=== PATIENT | male | born 1950 | race Caucasian/White ===

== ENCOUNTER → 2018-05-02 | Outpatient (CLI) | payer MEDICARE ==
[~2018-05-02] MED LIST: ASPI-515 PO; ATOR20TA9 PO; LEVE500T53 PO; METO25TA91 PO; POTA10TA5 PO; VILA40TA PO
[2018-05-02 10:49] LABS: MICROSCOPIC INDICATED
[2018-05-02 10:50] LABS: CULTURE INDICATED? NO
[2018-05-02 12:58] LABS: ALBUMIN 3.7 g/dL (3.4-5.0); ANION GAP 9 mmol/L (5-15); CALCIUM 8.9 mg/dL (8.5-10.1); CHLORIDE 107 mmol/L (98-107); CHOLESTEROL, TOTAL 134 mg/dL (140-239)
[2018-05-02 13:07] LABS: ALANINE AMINOTRANSFERASE 25 U/L (12-78); ALKALINE PHOSPHATASE 74 U/L (45-117); BILIRUBIN,TOTAL 0.4 mg/dL (0.2-1.0); C-REACTIVE PROTEIN, QUANT 0.22 mg/dL (0.02-0.49); CHOL/HDL RATIO 2.8; CREATINE KINASE, TOTAL 86 U/L (39-308); CREATININE 1.02 mg/dL (0.7-1.3); HDL CHOL % 36 % (26-37); HDL CHOLESTEROL (DIRECT) 48 mg/dL (40-60); LDL CHOLESTEROL,CALCULATED 68 mg/dL (54-169); LDL/HDL RATIO 1.4 (0.5-3.0); TOTAL PROTEIN 7.4 g/dL (6.4-8.2); TRIGLYCERIDES 92 mg/dL (50-200); VLDL CHOLESTEROL 18 mg/dL (0-25)
[2018-05-02 13:59] LABS: HEMOGLOBIN A1C 5.6 % (4.2-6.3)
== END | disposition home or self-care (01) ==
LOC: CFH 08:23
PROVIDERS: ATTEND Internal Medicine Cardiovascular Disease
DX: I25.83 Coronary atherosclerosis due to lipid rich plaque (principal); M12.9 Arthropathy, unspecified; I49.9 Cardiac arrhythmia, unspecified; J30.9 Allergic rhinitis, unspecified; K21.9 Gastro-esophageal reflux disease without esophagitis; N40.0 Benign prostatic hyperplasia without lower urinary tract symptoms; E78.5 Hyperlipidemia, unspecified; R94.5 Abnormal results of liver function studies; R79.9 Abnormal finding of blood chemistry, unspecified; R42 Dizziness and giddiness; R53.83 Other fatigue; M79.1 Myalgia; R07.89 Other chest pain; R55 Syncope and collapse; T50.8X4A Poisoning by diagnostic agents, undetermined, initial encounter; Z79.891 Long term (current) use of opiate analgesic
CPT/HCPCS: 36415; 80053; 80061; 81001; 82550; 83036; 84153; 84443; 86140; 86803

== ENCOUNTER → 2018-11-12 | Outpatient (CLI) | payer MEDICARE ==
[~2018-11-12] MED LIST changes: +ATOR20TA37 PO; -ATOR20TA9 PO; +REGADENOSON 0.4 MG/5 ML SYRINGE ONE
== END | disposition home or self-care (01) ==
LOC: CFH 08:30
PROVIDERS: ATTEND Internal Medicine Cardiovascular Disease
DX: I25.10 Atherosclerotic heart disease of native coronary artery without angina pectoris (principal)
CPT/HCPCS: 78452; 93017; A9502; J2785